=== PATIENT | male | born 1930 | race Caucasian/White ===

== ENCOUNTER 2016-04-09 09:46 | Emergency (ER) | payer OTHER ==
[~2016-04-09] VITALS: Ht 165.1 cm; Wt 63.5 kg
[~2016-04-09 09:46] MED LIST: ADULT LOW DOSE81 MG PO; ASPIRIN81 M2 PO; FERREX 150150 MG PO; FIBERCON625 M1 PO; FISH OIL 1,0001 EAC5 PO; FLOMAX PO; GLUCOSAMINE HC500 MG PO; GLUCOSAMINE1000 MG PO; HYDROCHLOROTHIA25 M1 PO; IRON325; LISINOPRIL10 MG PO; LISINOPRIL20 MG PO; LOPRESSOR25; LUMIGAN2.5 M1 OP; MECLIZINE 25 MG25 M1 PO; MOTION RELIEF25 MG PO; NORCO 5-325 TA1 EACH PO; NORFLEX100 MG PO; OMEPRAZOLE 20 M20 MG PO; PRILOSEC 20 MG20 MG PO; RAPAFLO8 MG PO; TRAMADOL 50 MG50 MG PO; VITAMIN D1000 UNI1 PO; ZOCOR 10 MG TAB10 MG PO; [UNRECOGNIZED DRUG - CODE]
[2016-04-09 10:08] LABS: HEMATOCRIT 43.7 % (42.0-52.0); HEMOGLOBIN 14.6 gm/dL (14.0-18.0); MCH 28.3 pg (26.0-34.0); MCHC 33.4 % (28.0-37.0); MCV 84.8 fL (80.0-100.0); PLATELET COUNT 135 thou/uL (150-400); RBC 5.16 mil/uL (4.50-6.00); RDW 14.9 % (10.5-14.5); WBC 7.9 thou/uL (4.0-11.0)
[2016-04-09 10:10] LABS: MANUAL DIFF YES
[2016-04-09 10:17] LABS: CREATININE 0.9 mg/dL (0.6-1.3); POTASSIUM 3.7 mmol/L (3.5-5.1)
[2016-04-09 10:23] LABS: ALBUMIN 3.8 g/dL (3.4-5.0); DIRECT BILIRUBIN 0.3 mg/dL (<0.1-0.3); TOTAL BILIRUBIN 1.2 mg/dL (<0.1-1.0); TOTAL PROTEIN 6.9 g/dL (6.4-8.2)
[2016-04-09 11:05] LABS: ABSOLUTE NEUTROPHILS 6.8 thou/uL (1.4-8.2); TOTAL CELL COUNT 100
[2016-04-09 11:33] LABS: URINE BILIRUBIN NEGATIVE (Negative); URINE BLOOD TRACE (Negative); URINE COLOR YELLOW; URINE GLUCOSE-RANDOM* NEGATIVE (Negative); URINE KETONES 1+ (Negative); URINE LEUKOCYTES-REFLEX NEGATIVE (Negative); URINE PROTEIN (DIPSTICK) TRACE (Negative); URINE UROBILINOGEN 0.2 E.U./dl (0.2-1.0)
[2016-04-09 12:21] VITALS: BP 152/77
== END 2016-04-09 12:23 | disposition home or self-care (01) ==
LOC: ER 09:46
PROVIDERS: Emergency Medicine
DX: N28.1 Cyst of kidney, acquired (principal); R10.31 Right lower quadrant pain; K59.00 Constipation, unspecified; F10.99 Alcohol use, unspecified with unspecified alcohol-induced disorder; I10 Essential (primary) hypertension; Z95.5 Presence of coronary angioplasty implant and graft; Z88.2 Allergy status to sulfonamides; Z88.0 Allergy status to penicillin; Z88.5 Allergy status to narcotic agent; Z88.1 Allergy status to other antibiotic agents; Z88.8 Allergy status to other drugs, medicaments and biological substances

== ENCOUNTER → 2016-07-17 | Outpatient (CLI) | payer OTHER ==
[2016-07-17 10:37] LABS: CREATININE 0.8 mg/dL (0.7-1.3)
== END ==
LOC: CAT 07:36
PROVIDERS: Urology
DX: N28.1 Cyst of kidney, acquired (principal); K80.20 Calculus of gallbladder without cholecystitis without obstruction; K44.9 Diaphragmatic hernia without obstruction or gangrene; R91.1 Solitary pulmonary nodule

== ENCOUNTER 2016-12-08 22:57 | Emergency (ER) | payer OTHER ==
[~2016-12-08] VITALS: Ht 162.6 cm; Wt 75.8 kg
--- NOTE | ~2016-12-08 | EKG ---
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 : 1930 Requested By: Noemi Coley Order Number: [id number] MD: Jonathan Grossman Measurements Intervals [place]s Rate: 64 P: ID: QRS: -25 QRSD: 99 T: 49 QT: 421 QTc: 435 Interpretive Statements Atrial fibrillation Inferior infarct, old Anterior infarct, old Baseline wander in lead(s) V6 Compared to ECG 12/14/2009 11:54:19 Sinus rhythm no longer present Electronically Signed On 12-09-2016 7:59:27 CDT by Jonathan Grossman [email or web address] <ELECTRONICALLY SIGNED> By: Jonathan Grossman MD, [facility] 12/09/16 0759 01 01 Jonathan Grossman MD, [facility] /EPI
[~2016-12-08 22:57] MED LIST changes: +LOPRESSOR25 PO
[2016-12-08] MEDS ORDERED: RAPAFLO8 MG (23:33)
[2016-12-08] MEDS ORDERED: LIPITOR 20 MG T20 M1 PO (23:34)
[2016-12-08] MEDS ORDERED: COZAAR100 MG PO (23:34)
[2016-12-08] MEDS ORDERED: COUMADIN 2.5MG2.5 M1 PO (23:35)
[2016-12-08] MEDS ORDERED: NEXIUM20 MG PO (23:35)
[2016-12-08 23:55] LABS: ANION GAP 8 mmol/L (7-16); BUN 18 mg/dL (7-18); CALCIUM 9.1 mg/dL (8.5-10.1); CHLORIDE 102 mmol/L (98-107); CO2 27 mmol/L (21-32); CREATININE 0.8 mg/dL (0.7-1.3); GLUCOSE 108 mg/dL (74-106); POTASSIUM 3.6 mmol/L (3.5-5.1); SODIUM 137 mmol/L (136-145)
[2016-12-08 23:57] LABS: ABSOLUTE NEUTROPHILS 2.5 thou/uL (1.4-8.2); BASOPHILS 1.1 % (0.0-2.0); EOSINOPHILS 3.4 % (0.0-3.0); HEMATOCRIT 40.9 % (42.0-52.0); HEMOGLOBIN 13.5 gm/dL (14.0-18.0); LYMPHOCYTES 25.5 % (24.0-44.0); MCV 84.9 fL (80.0-100.0); MONOCYTES 11.5 % (1.0-8.0); PLATELET COUNT 123 thou/uL (150-400); POLYS 58.5 % (36.0-66.0); RBC 4.81 mil/uL (4.50-6.00); RDW 15.8 % (10.5-14.5); WBC 4.4 thou/uL (4.0-11.0)
[2016-12-09 00:04] LABS: MAGNESIUM 1.8 mg/dL (1.8-2.4); TROPONIN-I < 0.04 ng/mL (<0.04-0.07)
[2016-12-09 00:07] LABS: MANUAL DIFF NO
[2016-12-09 01:21] VITALS: BP 141/82
== END 2016-12-09 01:25 | disposition home or self-care (01) ==
LOC: ER 22:57
PROVIDERS: Emergency Medicine
DX: R42 Dizziness and giddiness (principal); I10 Essential (primary) hypertension; Z95.9 Presence of cardiac and vascular implant and graft, unspecified; Z79.82 Long term (current) use of aspirin; Z88.6 Allergy status to analgesic agent; Z88.1 Allergy status to other antibiotic agents; Z88.5 Allergy status to narcotic agent; Z88.0 Allergy status to penicillin; Z88.2 Allergy status to sulfonamides; Z88.8 Allergy status to other drugs, medicaments and biological substances

== ENCOUNTER → 2017-08-19 | Outpatient (CLI) | payer OTHER ==
[~2017-08-19] MED LIST changes: +COUMADIN 2.5MG2.5 M1 PO; +COZAAR100 MG PO; +LIPITOR 20 MG T20 M1 PO; +NEXIUM20 MG PO; +RAPAFLO8 MG
== END ==
LOC: CAT 09:53
PROVIDERS: Urology
DX: N28.1 Cyst of kidney, acquired (principal); K76.0 Fatty (change of) liver, not elsewhere classified; N28.89 Other specified disorders of kidney and ureter

== ENCOUNTER 2018-03-07 03:16 | Inpatient (IN) | payer OTHER ==
[~2018-03-07] VITALS: Ht 162.6 cm; Wt 80.7 kg
--- NOTE | ~2018-03-07 | EKG ---
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 : 1930 Requested By: Haider Drake Order Number: [id number] MD: Tigre Mcnamara Measurements Intervals [place] Rate: 75 P: OK: QRS: -13 QRSD: 101 T: 0 QT: 474 QTc: 530 Interpretive Statements Atrial fibrillation Inferior infarct, old Consider anterior infarct Compared to ECG 12/08/2016 23:02:07 Myocardial infarct finding still present Electronically Signed On 03-08-2018 20:30:51 NURSING SECRETARY by Tigre Mcnamara [email or web address] <ELECTRONICALLY SIGNED> By: Tigre Mcnamara MD 03/08/18 2030 0414 0414 Tigre Mcnamara MD /EPI
--- NOTE | ~2018-03-07 | 2DMMODE ---
[facility] [address] [facility] [place] [address] 2 D/M-MODE ECHOCARDIOGRAM Name: BLAKEJADEIONA Room #: 216-P [facility] IN M.R.#: [id number] Admission: 03/07/18 Attend Phys: Seng Hudson MD Discharge: Date of : 28 Date of Service: 03/13/18 1155 Report #: [id number] THIS REPORT FOR: //name// APPROVED REPORT Study performed: 03/13/2018 11:06:57 EXAM: Comprehensive 2D, Doppler, and color-flow Echocardiogram Patient Location: Bedside Room #: 216 Status: routine BSA: 1.88 HR: 86 bpm BP: 122/64 mmHg Rhythm: Irregular Other Information Study Quality: Good Indications Short of breath, pulmonary infiltrates, hypoxia. Hx: CAD, stent, HTN 2D Dimensions RVDd: 42.94 mm IVSd: 9.30 (7-11mm) LVOT Diam: 20.42 (18-24mm) LVDd: 44.78 mm PWd: 8.57 (7-11mm) Ascending Ao: 39.91 (22-36mm) LVDs: 30.32 (25-40mm) Aortic Root: 34.38 mm Volumes Left Atrial Volume (Systole) Single Plane 4CH: 75.76 mL Single Plane 2CH: 95.66 mL LA ESV Index: 50.00 mL/m2 Aortic Valve AoV Peak Neel.: 1.44 m/s AO Peak Gr.: 9.28 mmHg LVOT Max P.88 mmHg LVOT Max V: 0.85 m/s DANNY Vmax: 1.93 cm2 Mitral Valve E/A Ratio: 2.5 MV Decel. Time: 98.13 ms [facility] [place] [address] 2 D/M-MODE ECHOCARDIOGRAM Name: IONA PRYOR Room #: 216-[facility] IN [facility].#: [id number] Admission: 03/07/18 Attend Phys: Seng Hudson MD Discharge: Date of : 28 Date of Service: 03/13/18 1155 Report #: [id number] E Max Neel.: 0.93 m/s MV A Neel.: 0.37 m/s MV PHT: 28.46 ms IVRT: 55.36 ms Pulmonary Valve PV Peak Neel.: 0.70 m/s PV Peak Gr.: 1.94 mmHg Tricuspid Valve TR Peak Neel.: 3.31 m/s RAP Estimate: 10.00 mmHg TR Peak Gr.: 43.79 mmHg PA Pressure: 54.00 mmHg Left Ventricle The left ventricle is normal size. There is normal LV segmental wall motion. There is normal left ventricular wall thickness. Left ventricular systolic function is normal. LVEF is 55%. No distinctive pattern of diastology. Right Ventricle Right ventricle is mildly dilated. The right ventricular systolic function is normal. Atria Left atrium is moderately dilated. Right atrium is moderately dilated. Aortic Valve The aortic valve is normal in structure and leaflets are mildly thickened. No aortic regurgitation is present. There is no aortic valvular stenosis. Mitral Valve Mitral valve leaflets are mildly thickened. Trace to mild mitral regurgitation. Tricuspid Valve The tricuspid valve is normal in structure. Moderate tricuspid regurgitation. Estimated PAP is 55mmHg. Pulmonic Valve Pulmonic valve is not well visualized. Mild to moderate pulmonic regurgitation. Great Vessels The aortic root is normal in size. The ascending aorta is mildly [facility] [address] [place] [address] 2 D/M-MODE ECHOCARDIOGRAM Name: IONA PRYOR Room #: 216-P [facility] IN .R.#: [id number] Admission: 03/07/18 Attend Phys: Seng Hudson MD Discharge: Date of : 28 Date of Service: 03/13/18 1155 Report #: [id number] dilated. IVC is dilated and collapses <50% with inspiration. Pericardium There is no pericardial effusion. <Conclusion> The left ventricle is normal size. LVEF is 55%. Right ventricle is mildly dilated. The right ventricular systolic function is normal. Left atrium is moderately dilated. Right atrium is moderately dilated. The aortic valve is normal in structure and leaflets are mildly thickened. Mitral valve leaflets are mildly thickened. Trace to mild mitral regurgitation. The tricuspid valve is normal in structure. Moderate tricuspid regurgitation. Estimated PAP is 55mmHg. Pulmonic valve is not well visualized. Mild to moderate pulmonic regurgitation. There is no pericardial effusion. <ELECTRONICALLY SIGNED> By: Miguelito Degroot MD 03/13/18 1155 1155 1155 Miguelito Degroot MD /INF
--- NOTE | ~2018-03-07 | EKG ---
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[place] : 1930 Requested By: Jonathan Grossman Order Number: [id number] MD: Jonathan Grossman Measurements Intervals [place] Rate: 85 P: ID: QRS: -19 QRSD: 99 T: 3 QT: 411 QTc: 489 Interpretive Statements Atrial fibrillation Borderline left axis deviation Poor R wave progression Inferior infarct, age indeterminate Compared to ECG 03/07/2018 04:14:55 No significant change was found Electronically Signed On 03-14-2018 11:04:31 HEEL FINISHER by Jonathan Grossman [email or web address] <ELECTRONICALLY SIGNED> By: Jonathan Grossman MD, [facility] 03/14/18 1104 0913 0913 Jonathan Grossman MD, [facility] /EPI
[~2018-03-07 03:16] MED LIST changes: -IRON325; +IRON325 PO
[2018-03-07 03:20] VITALS: BP 163/101
[2018-03-07] MEDS ORDERED: PRILOSEC 20 MG20 MG PO (03:28)
[2018-03-07] MEDS ORDERED: PROSCAR 5MG TABL5 MG PO (03:30)
[2018-03-07] MEDS ORDERED: [UNRECOGNIZED DRUG - OTHER] PO (03:34)
[2018-03-07 04:04] LABS: BASOPHILS 0.1 % (0.0-2.0); EOSINOPHILS 0.1 % (0.0-3.0); HEMOGLOBIN 13.2 gm/dL (14.0-18.0); MCH 27.6 pg (26.0-34.0); MCV 83.6 fL (80.0-100.0); MONOCYTES 6.1 % (1.0-8.0); PLATELET COUNT 169 thou/uL (150-400); POLYS 89.7 % (36.0-66.0); RBC 4.79 mil/uL (4.50-6.00); RDW 14.3 % (10.5-14.5); WBC 8.9 thou/uL (4.0-11.0)
[2018-03-07 04:07] LABS: CALCIUM 9.3 mg/dL (8.5-10.1); POTASSIUM 3.6 mmol/L (3.5-5.1)
[2018-03-07 04:13] LABS: TOTAL BILIRUBIN 1.2 mg/dL (<0.1-1.0); TOTAL PROTEIN 7.5 g/dL (6.4-8.2)
[2018-03-07 04:37] LABS: PROTIME 20.8 Seconds (9.3-11.4)
[2018-03-07 05:40] LABS: URINE BILIRUBIN NEGATIVE (Negative); URINE BLOOD NEGATIVE (Negative); URINE CLARITY CLEAR; URINE COLOR YELLOW; URINE GLUCOSE-RANDOM* NEGATIVE (Negative); URINE KETONES NEGATIVE (Negative); URINE LEUKOCYTES-REFLEX NEGATIVE (Negative); URINE NITRITE-REFLEX NEGATIVE (Negative); URINE PROTEIN (DIPSTICK) NEGATIVE (Negative); URINE UROBILINOGEN 0.2 E.U./dl (0.2-1.0)
[2018-03-07 10:00] VITALS: BP 101/54
[2018-03-07 10:10] VITALS: BP 116/55
[2018-03-07 11:58] VITALS: BP 135/76
[2018-03-07 15:55] VITALS: BP 120/68
[2018-03-07 17:40] LABS: ABSOLUTE NEUTROPHILS 3.9 thou/uL (1.4-8.2); BASOPHILS 0.1 % (0.0-2.0); HEMOGLOBIN 12.8 gm/dL (14.0-18.0); LYMPHOCYTES 6.9 % (24.0-44.0); MCH 27.3 pg (26.0-34.0); MCHC 32.1 g/dL (28.0-37.0); MONOCYTES 9.5 % (1.0-8.0); PLATELET COUNT 171 thou/uL (150-400); POLYS 83.5 % (36.0-66.0); RBC 4.71 mil/uL (4.50-6.00); RDW 14.6 % (10.5-14.5); WBC 4.6 thou/uL (4.0-11.0)
[2018-03-07 17:46] LABS: CALCIUM 8.5 mg/dL (8.5-10.1); POTASSIUM 3.6 mmol/L (3.5-5.1)
[2018-03-07 17:52] LABS: PROTIME 20.6 Seconds (9.3-11.4)
[2018-03-07 19:46] VITALS: BP 108/41
[2018-03-08 00:07] VITALS: BP 100/64
[2018-03-08 05:43] LABS: HEMATOCRIT 36.4 % (42.0-52.0); HEMOGLOBIN 11.8 gm/dL (14.0-18.0); MCH 27.8 pg (26.0-34.0); MCHC 32.5 g/dL (28.0-37.0); MCV 85.4 fL (80.0-100.0); RBC 4.26 mil/uL (4.50-6.00); RDW 14.4 % (10.5-14.5); WBC 5.9 thou/uL (4.0-11.0)
[2018-03-08 05:54] LABS: CALCIUM 8.4 mg/dL (8.5-10.1); CREATININE 0.9 mg/dL (0.7-1.3); POTASSIUM 3.3 mmol/L (3.5-5.1)
[2018-03-08 05:55] VITALS: BP 123/78
[2018-03-08 08:25] VITALS: BP 118/73
[2018-03-08 11:20] VITALS: BP 112/72
[2018-03-08 15:55] VITALS: BP 136/81
[2018-03-08 19:55] VITALS: BP 111/54
[2018-03-09 02:40] LABS: ABSOLUTE NEUTROPHILS 4.9 thou/uL (1.4-8.2); BASOPHILS 0.2 % (0.0-2.0); EOSINOPHILS 0.8 % (0.0-3.0); HEMATOCRIT 32.6 % (42.0-52.0); HEMOGLOBIN 10.1 gm/dL (14.0-18.0); LYMPHOCYTES 5.2 % (24.0-44.0); MCH 26.6 pg (26.0-34.0); MCHC 31.1 g/dL (28.0-37.0); MCV 85.6 fL (80.0-100.0); MONOCYTES 9.1 % (1.0-8.0); PLATELET COUNT 129 thou/uL (150-400); POLYS 84.7 % (36.0-66.0); RBC 3.81 mil/uL (4.50-6.00); RDW 14.4 % (10.5-14.5); WBC 5.8 thou/uL (4.0-11.0)
[2018-03-09 03:04] LABS: CALCIUM 8.2 mg/dL (8.5-10.1); CREATININE 0.8 mg/dL (0.7-1.3); POTASSIUM 3.3 mmol/L (3.5-5.1)
[2018-03-09 04:45] VITALS: BP 104/61
[2018-03-09 08:02] VITALS: BP 148/74
[2018-03-09 12:00] VITALS: BP 138/73
[2018-03-09 21:40] VITALS: BP 141/79
[2018-03-10 07:30] LABS: ABSOLUTE RETIC COUNT 0.0617 10^6/uL; OBSERVED RETIC COUNT 1.62 % (0.6-2.6)
[2018-03-10 07:44] LABS: % SATURATION 5 % (20-39); IRON 14 ug/dL (65-175); TIBC 259 ug/dL (250-450)
[2018-03-10 08:11] VITALS: BP 139/84
[2018-03-10 13:42] VITALS: BP 139/84
[2018-03-10 19:50] VITALS: BP 112/65
[2018-03-10 22:14] LABS: BE(vivo) -2.3 mmol/L (-2 to +3); HCO3 21.4 mmol/L (22.0-26.0); PCO2 33.1 mmHg (35.0-45.0); PO2 56.2 mmHg (80.0-100.0); pH 7.429 (7.360-7.450); sO2 90.4 % (92.0-98.0)
[2018-03-11 07:25] VITALS: BP 152/80
[2018-03-11 11:51] VITALS: BP 136/86
[2018-03-11 18:16] VITALS: BP 137/83
[2018-03-11 20:00] VITALS: BP 137/74
[2018-03-11 22:56] VITALS: BP 137/74
[2018-03-12] VITALS (7 sets, daily range): BP systolic 105–161; BP diastolic 61–105
[2018-03-13 04:39] VITALS: BP 120/74
[2018-03-13 05:21] LABS: ABSOLUTE NEUTROPHILS 7.1 thou/uL (1.4-8.2); BASOPHILS 0.3 % (0.0-2.0); EOSINOPHILS 0.9 % (0.0-3.0); HEMATOCRIT 29.8 % (42.0-52.0); HEMOGLOBIN 9.9 gm/dL (14.0-18.0); LYMPHOCYTES 3.6 % (24.0-44.0); MCH 27.7 pg (26.0-34.0); MCHC 33.3 g/dL (28.0-37.0); MCV 83.1 fL (80.0-100.0); MONOCYTES 9.1 % (1.0-8.0); PLATELET COUNT 136 thou/uL (150-400); POLYS 86.1 % (36.0-66.0); RBC 3.59 mil/uL (4.50-6.00); RDW 14.5 % (10.5-14.5); WBC 8.3 thou/uL (4.0-11.0)
[2018-03-13 07:06] VITALS: BP 122/64
[2018-03-13 10:36] LABS: APTT 36.8 Seconds (24.5-32.8); INR 1.2; PROTIME 12.4 Seconds (9.3-11.4)
[2018-03-13 10:40] LABS: ALBUMIN 2.5 g/dL (3.4-5.0); CALCIUM 8.7 mg/dL (8.5-10.1); POTASSIUM 3.1 mmol/L (3.5-5.1); TOTAL BILIRUBIN 1.2 mg/dL (<0.1-1.0); TOTAL PROTEIN 6.4 g/dL (6.4-8.2)
[2018-03-13 15:30] VITALS: BP 92/54
[2018-03-13 16:12] VITALS: BP 111/76
[2018-03-13 20:30] VITALS: BP 105/63
[2018-03-13 20:35] VITALS: BP 105/63
[2018-03-14 05:19] VITALS: BP 111/75
[2018-03-14 05:35] LABS: ABSOLUTE NEUTROPHILS 9.2 thou/uL (1.4-8.2); BASOPHILS 0.3 % (0.0-2.0); EOSINOPHILS 0.6 % (0.0-3.0); HEMATOCRIT 27.4 % (42.0-52.0); HEMOGLOBIN 9.2 gm/dL (14.0-18.0); MCH 27.6 pg (26.0-34.0); MCHC 33.4 g/dL (28.0-37.0); MCV 82.5 fL (80.0-100.0); MONOCYTES 5.6 % (1.0-8.0); PLATELET COUNT 157 thou/uL (150-400); POLYS 91.5 % (36.0-66.0); RBC 3.32 mil/uL (4.50-6.00); RDW 14.3 % (10.5-14.5); WBC 10.1 thou/uL (4.0-11.0)
[2018-03-14 05:47] LABS: CALCIUM 8.2 mg/dL (8.5-10.1); CREATININE 0.8 mg/dL (0.7-1.3); MAGNESIUM 1.8 mg/dL (1.8-2.4); POTASSIUM 3.7 mmol/L (3.5-5.1)
[2018-03-14 09:06] VITALS: BP 117/66
[2018-03-14 12:00] VITALS: BP 119/60
[2018-03-14 16:00] VITALS: BP 118/65
[2018-03-14 19:26] VITALS: BP 118/74
[2018-03-15 00:09] VITALS: BP 118/74
[2018-03-15 04:29] VITALS: BP 131/81
[2018-03-15 04:56] LABS: ABSOLUTE NEUTROPHILS 6.8 thou/uL (1.4-8.2); BASOPHILS 0.4 % (0.0-2.0); EOSINOPHILS 1.9 % (0.0-3.0); HEMATOCRIT 28.1 % (42.0-52.0); HEMOGLOBIN 9.4 gm/dL (14.0-18.0); LYMPHOCYTES 3.7 % (24.0-44.0); MCH 27.6 pg (26.0-34.0); MCHC 33.6 g/dL (28.0-37.0); MCV 82.1 fL (80.0-100.0); MONOCYTES 5.9 % (1.0-8.0); PLATELET COUNT 166 thou/uL (150-400); POLYS 88.1 % (36.0-66.0); RBC 3.42 mil/uL (4.50-6.00); RDW 14.3 % (10.5-14.5); WBC 7.7 thou/uL (4.0-11.0)
[2018-03-15 05:08] LABS: CALCIUM 8.4 mg/dL (8.5-10.1); CREATININE 0.7 mg/dL (0.7-1.3)
[2018-03-15 09:33] VITALS: BP 94/50
[2018-03-15 11:29] LABS: INR 1.1; PROTIME 11.6 Seconds (9.3-11.4)
[2018-03-15 16:00] VITALS: BP 117/61
[2018-03-15 20:01] VITALS: BP 122/54
[2018-03-16 04:26] VITALS: BP 122/54
[2018-03-16 04:26] LABS: CALCIUM 8.4 mg/dL (8.5-10.1); CREATININE 0.9 mg/dL (0.7-1.3); POTASSIUM 3.8 mmol/L (3.5-5.1)
[2018-03-16 04:40] LABS: ABSOLUTE NEUTROPHILS 6.2 thou/uL (1.4-8.2); BASOPHILS 0.4 % (0.0-2.0); EOSINOPHILS 1.6 % (0.0-3.0); HEMOGLOBIN 9.6 gm/dL (14.0-18.0); LYMPHOCYTES 4.2 % (24.0-44.0); MCH 27.4 pg (26.0-34.0); MCHC 33.3 g/dL (28.0-37.0); MCV 82.3 fL (80.0-100.0); MONOCYTES 5.5 % (1.0-8.0); PLATELET COUNT 178 thou/uL (150-400); POLYS 88.3 % (36.0-66.0); RBC 3.52 mil/uL (4.50-6.00); RDW 14.4 % (10.5-14.5)
[2018-03-16 04:47] VITALS: BP 97/47
[2018-03-16 07:47] VITALS: BP 128/77
[2018-03-16] MEDS ORDERED: IPRAT-ALBUT 0.5-3 ML INH (14:12)
[2018-03-16] MEDS ORDERED: COZAAR 25 MG TA25 M1 PO (14:12)
[2018-03-16] MEDS ORDERED: AVELOX 400 MG400 MG PO (14:15)
[2018-03-16] MEDS ORDERED: SENNA8.6 MG PO (14:23)
[2018-03-16] MEDS ORDERED: COLACE100 MG PO (14:23)
== END 2018-03-16 15:38 | DRG 388 ==
LOC: EDBD 03:16 → ER 03:16 → EROBS 06:41 → 2N 06:41 → ENTRNSPT 03-09 15:51 → SICU 03-09 17:18 → CMPTRNSPT 03-10 12:05 → SICU 03-11 00:31 → DELTRNSPT 03-11 11:48 → 2N 03-11 11:48
PROVIDERS: Emergency Medicine; Hospitalist; Internal Medicine; Nurse Practitioner Acute Care; Nurse Practitioner Family
PROC: 0D9670Z Drainage of Stomach with Drainage Device, Via Natural or Artificial Opening (ICD-10-PCS; principal; 2018-03-07)
DX: K56.600 Partial intestinal obstruction, unspecified as to cause (principal); E43 Unspecified severe protein-calorie malnutrition; I50.33 Acute on chronic diastolic (congestive) heart failure; J96.91 Respiratory failure, unspecified with hypoxia; J69.0 Pneumonitis due to inhalation of food and vomit; N17.9 Acute kidney failure, unspecified; D68.59 Other primary thrombophilia; Z96.653 Presence of artificial knee joint, bilateral; Z96.611 Presence of right artificial shoulder joint; K44.9 Diaphragmatic hernia without obstruction or gangrene; N28.1 Cyst of kidney, acquired; N40.1 Benign prostatic hyperplasia with lower urinary tract symptoms; R33.8 Other retention of urine; I25.10 Atherosclerotic heart disease of native coronary artery without angina pectoris; K59.00 Constipation, unspecified; Z60.2 Problems related to living alone; E87.6 Hypokalemia; D64.9 Anemia, unspecified; E87.70 Fluid overload, unspecified; I11.0 Hypertensive heart disease with heart failure; I27.20 Pulmonary hypertension, unspecified; K22.70 Barrett's esophagus without dysplasia; I48.2 Chronic atrial fibrillation; S00.03XA Contusion of scalp, initial encounter; W18.39XA Other fall on same level, initial encounter; Z79.899 Other long term (current) drug therapy; Z88.6 Allergy status to analgesic agent; Z88.0 Allergy status to penicillin; Z88.8 Allergy status to other drugs, medicaments and biological substances; Z79.01 Long term (current) use of anticoagulants; Z95.5 Presence of coronary angioplasty implant and graft; Z79.82 Long term (current) use of aspirin; Y93.89 Activity, other specified; Y92.89 Other specified places as the place of occurrence of the external cause; Y99.8 Other external cause status; Z68.30 Body mass index [BMI] 30.0-30.9, adult
CPT/HCPCS: 10081; 15002

== ENCOUNTER 2018-08-21 15:28 | Emergency (ER) | payer OTHER ==
[~2018-08-21] VITALS: Ht 165.1 cm; Wt 79.4 kg
[~2018-08-21 15:28] MED LIST changes: +AVELOX 400 MG400 MG PO; +COLACE100 MG PO; +COZAAR 25 MG TA25 M1 PO; +IPRAT-ALBUT 0.5-3 ML INH; +PROSCAR 5MG TABL5 MG PO; +SENNA8.6 MG PO; +[UNRECOGNIZED DRUG - OTHER] PO
[2018-08-21] MEDS ORDERED: DEMADEX20 MG PO (16:07)
[2018-08-21 16:40] LABS: URINE BILIRUBIN NEGATIVE (Negative); URINE BLOOD TRACE (Negative); URINE CLARITY SL CLOUDY; URINE GLUCOSE-RANDOM* NEGATIVE (Negative); URINE KETONES NEGATIVE (Negative); URINE NITRITE-REFLEX NEGATIVE (Negative); URINE PROTEIN (DIPSTICK) NEGATIVE (Negative); URINE UROBILINOGEN 0.2 E.U./dl (0.2-1.0)
[2018-08-21 16:41] LABS: URINE LEUKOCYTES-REFLEX 3+ (Negative)
[2018-08-21 16:42] LABS: URINE COLOR STRAW
[2018-08-21 16:54] LABS: CASTS None Seen /LPF (None Seen); CRYSTALS None Seen /LPF (None Seen); SQUAMOUS None Seen /LPF (0-3); URINE RBC 0-2 Rare /HPF (0-2); URINE WBC-REFLEX >25 Many /HPF (0-5)
[2018-08-21] MEDS ORDERED: KEFLEX500 M1 PO (17:43)
[2018-08-21] MEDS ORDERED: LEVAQUIN 750 M750 MG PO (17:45)
[2018-08-21 19:05] VITALS: BP 152/86
== END 2018-08-21 19:05 | disposition home or self-care (01) ==
LOC: ER 15:28
PROVIDERS: Nurse Practitioner
DX: R33.9 Retention of urine, unspecified (principal); I10 Essential (primary) hypertension; Z88.6 Allergy status to analgesic agent; Z88.1 Allergy status to other antibiotic agents; Z88.5 Allergy status to narcotic agent; Z88.0 Allergy status to penicillin; Z88.2 Allergy status to sulfonamides; Z88.8 Allergy status to other drugs, medicaments and biological substances; Z96.653 Presence of artificial knee joint, bilateral; Z95.5 Presence of coronary angioplasty implant and graft; Z96.611 Presence of right artificial shoulder joint

== ENCOUNTER 2018-08-28 05:02 | Emergency (ER) | payer OTHER ==
[~2018-08-28] VITALS: Ht 165.1 cm; Wt 78.9 kg
[~2018-08-28 05:02] MED LIST changes: +DEMADEX20 MG PO; +KEFLEX500 M1 PO; +LEVAQUIN 750 M750 MG PO
[2018-08-28 05:36] LABS: URINE BILIRUBIN NEGATIVE (Negative); URINE BLOOD 3+ (Negative); URINE CLARITY CLEAR; URINE COLOR YELLOW; URINE GLUCOSE-RANDOM* NEGATIVE (Negative); URINE KETONES NEGATIVE (Negative); URINE NITRITE-REFLEX NEGATIVE (Negative); URINE PROTEIN (DIPSTICK) 2+ (Negative); URINE UROBILINOGEN 0.2 E.U./dl (0.2-1.0)
[2018-08-28 05:41] LABS: URINE LEUKOCYTES-REFLEX 1+ (Negative)
[2018-08-28] MEDS ORDERED: KEFLEX500 M1 PO (05:50)
[2018-08-28 06:01] LABS: CRYSTALS None Seen /LPF (None Seen); MUCUS 0-3 Light strn/LPF (None Seen); SQUAMOUS 0-3 Few /LPF (0-3); URINE RBC >20 Many /HPF (0-2); URINE WBC-REFLEX 6-15 Few /HPF (0-5)
[2018-08-28 06:46] VITALS: BP 159/63
== END 2018-08-28 06:49 | disposition home or self-care (01) ==
LOC: ER 05:02
PROVIDERS: Emergency Medicine
DX: T83.098A Other mechanical complication of other urinary catheter, initial encounter (principal); I10 Essential (primary) hypertension; Z88.6 Allergy status to analgesic agent; Z88.1 Allergy status to other antibiotic agents; Z88.5 Allergy status to narcotic agent; Z88.0 Allergy status to penicillin; Z88.2 Allergy status to sulfonamides; Z88.8 Allergy status to other drugs, medicaments and biological substances; Z96.653 Presence of artificial knee joint, bilateral; Z95.5 Presence of coronary angioplasty implant and graft; Z96.611 Presence of right artificial shoulder joint